=== PATIENT | female | born 1930 | race Caucasian/White ===

== ENCOUNTER 2017-06-12 18:26 | Inpatient (IN) ==
[2017-06-12 19:12] LABS: Basophils % 0.8 % (0.0-0.8); Eosinophils # 0.3 10*3/uL (0.0-0.87); Eosinophils % 6.2 % (0.00-10.9); Hemoglobin 11.2 GM/DL (12.0-16.0); Immature Granulocytes % 0.4 %; Immature Granulocytes Absolute 0.02 #; Lymphocytes # 1.2 10*3/uL (1.4-4.0); Lymphocytes % 23.2 % (21.3-54.2); Mean Corpuscular HGB Conc 33.9 GM/DL (32-36); Mean Corpuscular Hemoglobin 36 PG (27-34); Mean Corpuscular Volume 104.8 FL (87-102); Mean Platelet Volume 10.4 FL (9.6-12.0); Monocytes # 0.7 10*3/uL (0.11-0.8); Monocytes % 13.9 % (1.7-12.7); Neutrophils % 55.5 % (38.7-73.9); Platelet Count 236 T/CUMM (130-400); Red Blood Count 3.15 MC/CUMM (3.8-5.5); Red Cell Distribution Width 12.3 % (9.3-17.3); White Blood Count 5.3 T/CUMM (4-12)
[2017-06-12 19:38] LABS: Albumin 3.7 G/DL (3.4-5.0); Bilirubin,Total 0.5 MG/DL (0.2-1.0); Calcium 8.8 MG/DL (8.5-10.1); Osmolality,Calculated 282.4 MOS/KG (273-304); Potassium 3.9 MMOL/L (3.5-5.1); Total Protein 6.9 G/DL (6.4-8.3)
[2017-06-12] MEDS ORDERED: SODIUM CHLORIDE 0.9% 500 ML IV STA (20:07)
[2017-06-12] MEDS ORDERED: LEVOFLOXACIN INJ 500 MG in PREMIX 1 EACH IV STA (20:07)
[2017-06-12] MEDS ORDERED: ONDANSETRON 4 MG/2 ML VIAL IV STA (20:11)
[2017-06-12] MEDS ORDERED: LEVOFLOXACIN INJ 0 ML IV ONE (20:12)
[2017-06-12] MEDS ORDERED: ONDANSETRON 4 MG/2 ML VIAL ONE (20:18)
[2017-06-12] MEDS ORDERED: LEVOFLOXACIN INJ 100 ML IV ONE (20:24)
[2017-06-12] MEDS ORDERED: ACETAMINOPHEN 325 MG TABLET PO PRN (20:25)
[2017-06-12] MEDS ORDERED: ONDANSETRON 4 MG/2 ML VIAL IV PRN (20:25)
[2017-06-12] MEDS ORDERED: PROMETHAZINE 25 MG/1 ML VIAL IM PRN (20:25)
[2017-06-12] MEDS ORDERED: ACETAMINOPHEN 325 MG TABLET PO ONE (20:36)
--- NOTE | 2017-06-12 20:44 | Hospitalist History & Physical ---
Assessment and Plan (1) Nausea and vomiting Status: Acute Current Visit: Yes (2) Urinary tract infection Status: Acute Assessment and plan: We will admit the patient our service. Put on IV Levaquin. Continue home meds as appropriate. Treat her nausea and vomiting. Current Visit: Yes History of Present Illness Chief complaint: Nausea and vomiting History of present illness: Ms. Botello is a 86 year old female with past medical history significant for hypothyroidism and arthritis who was in her normal state of health until this past weekend. Patient was having issues with pain with urination and went to Dr. Nino office. He prescribed her Levaquin and Pyridium. She has not been able to keep any of the medicines down and has had nausea and vomiting going on for the past few days. Patient's culture results came back it was sensitive to Levaquin I was consulted to admit her Allergies Allergy/AdvReac Type Severity Reaction Status Date / Time Sulfa (Sulfonamide Allergy RASH Verified 06/12/17 18:29 Antibiotics) Medical,Surgical,& Family Hx - Medical History Endocrine: History of: Thyroid Disorder Genitourinary: History of: Recurring Urinary Tract Infections - Surgical History HEENT Surgeries: Surgical HX of: Thyroid Surgery Reproductive Surgeries: Surgical HX of;: Hysterectomy - Family History Family History: Reports;: Family Hypertension - Social History Smoking Status: Never smoker 12 point system: reviewed and no additional remarkable complaints except as stated Exam - Constitutional Vitals: Period Temp Pulse Resp BP Sys/Zhu Pulse Ox Last 24 Hr 99.0 F 71-82 20-20 156-162/72-88 94-96 General appearance: normal weight - Head Head exam: Present: normal inspection - Eye Eye exam: Present: EOMI Pupils: Present: COOKIE - ENT ENT exam: Present: normal exam - Neck Neck exam: Present: normal inspection - Respiratory Respiratory exam: Present: clear to auscultation bilaterally - Cardiovascular Cardiovascular exam: Present: regular rate and rhythm - GI/Abdominal GI/Abdominal exam: Present: normal bowel sounds - Extremities Exam Extremities exam: Present: normal inspection - Back Exam Back exam: Present: normal inspection - Neurological Exam Neurological exam: Present: alert - Psychiatric Psychiatric exam: Present: normal affect Results - Labs CBC & BMP: 06/12/17 19:04 06/12/17 19:04
[2017-06-12] MEDS ORDERED: ACETAMINOPHEN 325 MG TABLET ONE (20:52)
--- NOTE | 2017-06-12 20:55 | Emergency Department Note ---
Reinaldo Strauss Brittany, am scribing for, and in the presence of, Choco Pacheco M.D. 20:02. Junior Strauss Howard T, M.D., personally performed the services described in this documentation, ascribed by Yanely Najera in my presence, and it is both accurate and complete . Arrival - Arrival Chief Complaint: Nausea/Vomiting/Diarrhea Stated Complaint: Vomitting, dehydration ED Nursing Triage Note: Pt c/o nausea and vomiting since . Pt was DX with UTI given Levaquin and Pyridium on Friday. Mode of Arrival: Wheelchair Limitations: No Limitations Source: Patient, RN Notes Reviewed - History of Present Illness HPI Narrative: Patient is a 86 y/o white female [place] [facility]/o nausea and vomiting that began 2 days ago. Friday night woke up in the night urinating frequently and had notable dysuria. Had urine catheter performed at Dr. Nabeel Nino office the next day and was Dx with UTI and given Levaquin and Pyridium 3 days ago. Patient took first dose of Levaquin Friday morning, but began vomiting that evening. Unable to tolerate medications or food. Patient states dysuria is somewhat better than initial onset. Family reports that patient does not eat enough and does not have adequate intake of water. Patient vomited 5x today, notably once while in the waiting room. Denies any chest pain, SOB, abdominal pain or back pain. No other complaints/pain. Allergies/Adverse Reactions: Allergies Allergy/AdvReac Type Severity Reaction Status Date / Time Sulfa (Sulfonamide Allergy RASH Verified 06/12/17 18:29 Antibiotics) Review of System - Review of System 12 point system: reviewed and no additional remarkable complaints except as stated - Review of System Constitutional: Absent: chills, fever Respiratory: Absent: respiratory distress Cardiovascular: Absent: chest pain Gastrointestinal: Present: nausea, vomiting ( ). Absent: abdominal pain Genitourinary female: Absent: dysuria, frequency, urgency Musculoskeletal: Absent: arm pain, back pain, leg pain, neck pain Skin: Absent: rash Medical,Surgical,& Family Hx - Medical History Endocrine: History of: Thyroid Disorder Genitourinary: History of: Recurring Urinary Tract Infections - Surgical History HEENT Surgeries: Surgical HX of: Thyroid Surgery Reproductive Surgeries: Surgical HX of;: Hysterectomy - Social History Smoking Status: Never smoker Exam Vital Signs: Vital Signs Temperature 99.0 F 06/12/17 18:27 Pulse Rate 71 06/12/17 20:20 Respiratory Rate 20 06/12/17 20:20 Blood Pressure 156/72 06/12/17 20:20 O2 Sat by Pulse Oximetry 96 06/12/17 20:20 - General General appearance: alert, in no apparent distress - Head Head exam: Present: atraumatic, normocephalic, normal inspection - Eye Eye exam: Present: normal appearance, PERRL, EOMI - ENT ENT exam: Present: normal exam, normal oropharynx - Neck Neck exam: Present: normal inspection, full ROM, trachea midline - Chest Chest inspection: Present: normal inspection, symmetric chest wall rise - Respiratory Respiratory exam: Present: normal lung sounds bilaterally - Cardiovascular Cardiovascular exam: Present: regular rate, normal rhythm, normal heart sounds - Abdominal Exam Abdominal exam: Present: soft, normal bowel sounds. Absent: tenderness - Extremities Exam Extremities exam: Present: normal inspection - Back Exam Back exam: Present: normal inspection - Neurological Exam Neurological exam: Present: alert, oriented X3, CN II-XII intact. Absent: motor sensory deficit - Psychiatric Psychiatric exam: Present: normal affect, normal mood - Skin Skin exam: Present: warm, dry Course Course Narrative: Medical decision making: We discussed going home versus overnight observation, I recommended overnight observation given her age and inability to keep her medications down the last couple days. Recent culture suggest Levaquin susceptible so given a dose and contacted hospitalist for overnight admission Results - Labs CBC & BMP: 06/12/17 19:04 06/12/17 19:04 Lab Results: I have reviewed the patients labs Labs: Laboratory Tests 06/12/17 06/12/17 19:04 19:04 WBC 5.3 RBC 3.15 L Hgb 11.2 L Hct 33.0 L MCV 104.8 H Plt Count 236 [place] % (Auto) 13.9 H Lymph # (Auto) 1.2 L Sodium 140 Potassium 3.9 Chloride 104 Carbon Dioxide 29 BUN 21 H Creatinine 0.80 BUN/Creatinine Ratio 26.00 H Glucose 124 H Disposition Clinical Impression: Nausea and vomiting, Urinary tract infection Case discussed with: patient Disposition: Still a Patient Condition: Stable Time of Disposition: 20:55
[2017-06-12] MEDS: SODIUM CHLORIDE 0.9% 1,000 ML IV SCH (22:50)
[2017-06-12] MEDS: ENOXAPARIN 40 MG/0.4 ML SYRINGE SUBCUT SCH (22:52)
[2017-06-13 05:32] LABS: Basophils % 0.8 % (0.0-0.8); Eosinophils # 0.3 10*3/uL (0.0-0.87); Hemoglobin 9.4 GM/DL (12.0-16.0); Immature Granulocytes % 0.4 %; Immature Granulocytes Absolute 0.02 #; Lymphocytes # 1.8 10*3/uL (1.4-4.0); Lymphocytes % 36.3 % (21.3-54.2); Mean Corpuscular HGB Conc 33.6 GM/DL (32-36); Mean Corpuscular Hemoglobin 35 PG (27-34); Mean Corpuscular Volume 105.3 FL (87-102); Mean Platelet Volume 10.3 FL (9.6-12.0); Monocytes # 0.8 10*3/uL (0.11-0.8); Monocytes % 15.2 % (1.7-12.7); Neutrophils # 2.1 10*3/uL (1.4-7.4); Neutrophils % 41.3 % (38.7-73.9); Platelet Count 200 T/CUMM (130-400); Red Blood Count 2.66 MC/CUMM (3.8-5.5); Red Cell Distribution Width 12.3 % (9.3-17.3)
[2017-06-13 06:01] LABS: Calcium 8.1 MG/DL (8.5-10.1); Potassium 4.3 MMOL/L (3.5-5.1)
[2017-06-13] MEDS: PANTOPRAZOLE 40 MG TABLET PO SCH (08:35)
--- NOTE | 2017-06-13 12:40 | Hospitalist Progress Note ---
Assessment and Plan (1) Nausea and vomiting Status: Acute Assessment and plan: Improving with IVF, IV anti emetics Current Visit: Yes (2) Urinary tract infection Status: Acute Assessment and plan: continue IV Levaquin Plan Follow UC, BC Current Visit: Yes (3) H/O thyroid disease Status: Acute Assessment and plan: will get a TSH, T3, T4 levels Current Visit: Yes Hospitalist: Subjective Interval history: Patient seen. She feels better.No new issues. Exam - Constitutional Vitals: Period Temp Pulse Resp BP Sys/Zhu Pulse Ox Last 24 Hr 97.1 F-99.1 F 62-82 18-20 122-162/58-88 93-96 General appearance: no acute distress - Head Head exam: Present: normal inspection - Respiratory Respiratory exam: Present: clear to auscultation bilaterally - Cardiovascular Cardiovascular exam: Present: regular rate and rhythm - GI/Abdominal GI/Abdominal exam: Present: normal bowel sounds - Extremities Exam Extremities exam: Present: normal inspection - Neurological Exam Neurological exam: Present: alert, oriented X3 Results - Labs CBC & BMP: 06/13/17 05:06 06/13/17 05:06 Lab Results: I have reviewed the past 24 hour labs
[2017-06-13 13:06] LABS: Free T4 (Free Thyroxine) 1.81 NG/DL (0.76-1.46); Thyroid Stimulating Hormone < 0.005 uIU/ml (0.358-3.74)
[2017-06-13] MEDS: SODIUM CHLORIDE 0.9% 1,000 ML IV SCH (14:24)
[2017-06-13] MEDS: LEVOFLOXACIN INJ 500 MG in PREMIX 1 EACH IV SCH (20:59)
[2017-06-13] MEDS: ENOXAPARIN 40 MG/0.4 ML SYRINGE SUBCUT SCH (21:00)
[2017-06-14] MEDS: SODIUM CHLORIDE 0.9% 1,000 ML IV SCH ×2 (01:41→15:11)
[2017-06-14] MEDS: PANTOPRAZOLE 40 MG TABLET PO SCH (08:33)
--- NOTE | 2017-06-14 10:52 | Hospitalist Progress Note ---
Assessment and Plan (1) Nausea and vomiting Status: Acute Assessment and plan: Improved. plan DC iVF, continue anti emetics prn Current Visit: Yes (2) Urinary tract infection Status: Acute Assessment and plan: continue IV Levaquin Plan Follow UC, BC Current Visit: Yes (3) H/O thyroid disease Status: Acute Assessment and plan: TSH- is low, T4 levels is high Plan Outpt follow up Current Visit: Yes Hospitalist: Subjective Interval history: Patient seen this am, she feels much better. Nausea and vomiting have improved Exam - Constitutional Vitals: Period Temp Pulse Resp BP Sys/Zhu Pulse Ox Last 24 Hr 97.1 F-98.4 F 55-74 16-22 98-141/48-67 90-96 General appearance: no acute distress - Head Head exam: Present: normal inspection - Respiratory Respiratory exam: Present: clear to auscultation bilaterally - Cardiovascular Cardiovascular exam: Present: regular rate and rhythm - GI/Abdominal GI/Abdominal exam: Present: normal bowel sounds - Extremities Exam Extremities exam: Present: normal inspection - Neurological Exam Neurological exam: Present: alert, oriented X3 Results - Labs CBC & BMP: 06/13/17 05:06 06/13/17 05:06 Lab Results: I have reviewed the past 24 hour labs
[2017-06-14 13:02] LABS: Apearance,Urine CLOUDY (Clear); Bacteria,Urine Occasional /HPF (Few); Bilirubin,Urine Negative (Negative); Blood, Urine Small mg/dL (Negative); Glucose,Urine (UA) Negative (Negative); Ketones,Urine Negative (Negative); Mucus,Urine Occasional /LPF (Occasional); Nitrite,Urine Negative (Negative); Protein,Urine Negative; RBC,Urine 8 /HPF (0-4); Squamous Epithelial Cell,Urine Moderate /HPF (0-10); Urine Color Yellow (Yellow); Urine Specific Gravity 1.013 (1.001-1.035); Urine Urobilinogen < 2.0 EU/DL (0.2-1.0); WBC,Urine 136 /HPF (0-6)
[2017-06-14] MEDS: LEVOFLOXACIN INJ 500 MG in PREMIX 1 EACH IV SCH (21:05)
[2017-06-14] MEDS: ENOXAPARIN 40 MG/0.4 ML SYRINGE SUBCUT SCH (21:05)
[2017-06-15] MEDS: SODIUM CHLORIDE 0.9% 1,000 ML IV SCH (05:02)
[2017-06-15] MEDS: PANTOPRAZOLE 40 MG TABLET PO SCH (10:02)
--- NOTE | 2017-06-15 10:04 | Discharge Summary ---
<Price Johnson - Last Filed: 06/15/17 10:07> Hospital Course - Hospital Course Hospital Course: Ms. Botello is a 86 year old female who was admitted on 06/12/2017 with complaints of nausea and vomiting and was found to have a UTI. She was admitted to the hospitalist service and treated with IV fluids and antiemetics for the N/ V along with IV levaquin for the UTI. Blood cultures and urine cultures were all negative to-date. Her hospital course was fairly uncomplicated as she improved with the aforementioned treatments. She was also found to have low TSH and high T4 levels. This can been followed outpatient. At this time, she has reached maximum benefit from hospitalization and is stable for discharge. She should follow up with her PCP in 1-2 weeks.Her vitals are stable, she will be discharged today. - Time spent with patient Time with patient DS: Greater than 30 minutes Discharge Plan - Discharge Data Disposition: Disch To Home/Self Care - Discharge Medications New Acetaminophen Tab [Tylenol Tab] 650 mg PO Q4H PRN tablet PRN Reason: Fever, Headache, Mild Pain Levofloxacin Tab [Levaquin Tab] 500 mg PO DAILY #7 tablet Pantoprazole Tab [Protonix Tab] 40 mg PO DAILY #30 tablet - Follow Up or Referral - Forms/Instructions Exam - Constitutional Vitals: Period Temp Pulse Resp BP Sys/Zhu Pulse Ox Last 24 Hr 97.2 F-98.1 F 61-82 16-20 101-152/44-96 92-95 Discharge Results Procedures and tests throughout hospitalization: Pending Orders 06/13/17 10:35 Urine Culture Routine 06/13/17 11:02 Blood Culture Routine 06/14/17 12:15 Urine Culture Stat 06/14/17 12:53 Blood Culture Stat 06/15/17 04:03 TSH, Sensitive, S IN AM Labs on day of discharge: Labs from last 24 hours 06/14/17 12:11 Urine Color Yellow Urine Appearance Cloudy Urine pH 5.0 Ur Specific Stout 1.013 Urine Protein Negative Urine Glucose (UA) Negative Urine Ketones Negative Urine Blood Small Urine Nitrate Negative Urine Bilirubin Negative Urine Urobilinogen < 2.0 H Urine Leukocytes Moderate H Urine RBC 8 Urine WBC 136 Urine WBC Clumps Few Ur Squamous Epith Cells Moderate Urine Bacteria Occasional Urine Mucus Occasional Ur Culture Indicated? Ordered separately Preliminary micro results at discharge 06/14/17 12:15 Urine Culture - Preliminary Urine,Clean Catch No Growth at 24 hours. 06/13/17 10:35 Urine Culture - Preliminary Urine,Voided No Growth at 24 hours. 06/13/17 11:02 Blood Culture - Preliminary Blood No growth at 1 day 06/13/17 11:02 Blood Culture - Preliminary Blood No growth at 1 day DS: Provider Date of admission: 06/13/17 10:10 Primary care physician: . No PCP Attending physician on admission: Anand Castanon MD Discharging clinician: Price AYERS Expected date of discharge: 06/15/17 <Billie Inman - Last Filed: 06/15/17 11:10> Hospital Course - Time spent with patient Time with patient DS: Greater than 30 minutes (time spent greater than 35mins) Diagnosis - Discharge Diagnosis (1) Nausea and vomiting Status: Acute (2) Urinary tract infection Status: Acute (3) H/O thyroid disease Status: Acute Discharge Plan - Discharge Data Condition at Discharge: Stable Discharge Diet: advance to your usual diet Activity: resume usual activities as tolerated - Forms/Instructions Additional Discharge Instructions: Follow with pCP in 1week, repeat thyroid test as outpatient. Exam - Constitutional General appearance: no acute distress - Head Head exam: Present: normal inspection - Respiratory Respiratory exam: Present: clear to auscultation bilaterally - Cardiovascular Cardiovascular exam: Present: regular rate and rhythm - GI/Abdominal GI/Abdominal exam: Present: normal bowel sounds - Extremities Exam Extremities exam: Present: normal inspection
[2017-06-15 11:33] VITALS: BP 142/74
== END 2017-06-15 12:41 | disposition home or self-care (01) | DRG 690 ==
LOC: N.EDINP 18:26 → N.ED 18:26 → SUATTDRO 20:25 → N.2E 21:30
PROVIDERS: ADMIT Internal Medicine; ATTEND Internal Medicine